=== PATIENT | male | born 1995 | race Caucasian/White ===

== ENCOUNTER → 2019-04-14 | Outpatient (REF) | payer SELFPAY ==
[~2019-04-14] MED LIST: ASPI-1 PO; PERC5TAB12 PO
== END ==
LOC: M SFHCLUC 11:02
PROVIDERS: ATTEND Physician Assistant
DX: R10.30 Lower abdominal pain, unspecified (principal)

== ENCOUNTER → 2020-06-10 | Outpatient (CLI) | payer MEDICAID | LOC: M OUTALCOH 07:48 | PROVIDERS: ATTEND Psychiatry & Neurology Addiction Medicine | DX: Z03.89 Encounter for observation for other suspected diseases and conditions ruled out (principal) ==

== ENCOUNTER 2020-06-30 14:33 | Outpatient (RCR) | payer MEDICAID | END 2020-07-06 | LOC: M OUTALCOH 14:33 | PROVIDERS: ATTEND Psychiatry & Neurology Addiction Medicine | DX: F10.10 Alcohol abuse, uncomplicated (principal) ==

== ENCOUNTER 2020-07-14 14:39 | Outpatient (RCR) | payer MEDICAID | END 2020-08-06 | LOC: M OUTALCOH 14:39 | PROVIDERS: ATTEND Psychiatry & Neurology Addiction Medicine | DX: F10.20 Alcohol dependence, uncomplicated (principal) ==

== ENCOUNTER 2024-12-10 14:55 | Emergency (ER) | payer MEDICAID, OTHER ==
[~2024-12-10] VITALS: Ht 188 cm; Wt 149.4 kg
[2024-12-10] MEDS: BOOSTRIX VACCINE (TETANUS/DIPHTH/ACEL. PERTUSSIS) 0.5ML SYR IM ONE (17:33)
[2024-12-10 20:03] VITALS: BP 142/99; TEMP 96.4; O2SAT 97
== END 2024-12-10 20:08 | disposition left against medical advice (07) ==
LOC: M ED 14:55
DX: Z53.21 Procedure and treatment not carried out due to patient leaving prior to being seen by health care provider (principal)